=== PATIENT | female | born 1960 | race Caucasian/White ===

== ENCOUNTER → 2016-10-04 | Outpatient (CLI) | payer OTHER ==
[2016-04-04 11:00] VITALS: BP 128/89
[~2016-10-04] MED LIST: ASPI325T11 PO; ASPI81TA2 PO; ATOR40TA59 PO; BUSP5TAB PO; CLOP75TA PO; FOLI1TAB16 PO; FURO-68 PO; INSU100C4 SQ; INSU100I18 SQ; LISI2.5T PO; LORA0.5T PO; METO25TA4 PO; MULT1TAB52 PO; PANT40TA3 PO; SPIR25TA3 PO; THIA100T43 PO
--- NOTE | 2016-10-04 13:18 | CARD ---
APPROVED REPORT EXAM: Two-dimensional and M-mode echocardiogram with Doppler and color Doppler. Other Information Quality : GoodHR: 97bpm Rhythm : NSR INDICATION Cardiomyopathy 2D DIMENSIONS RVDd1.6 (2.9-3.5cm)Left Atrium(2D)4.0 (1.6-4.0cm) IVSd0.8 (0.7-1.1cm)Aortic Root(2D)2.6 (2.0-3.7cm) LVDd6.8 (3.9-5.9cm)LVOT Diameter2.0 (1.8-2.4cm) PWd0.9 (0.7-1.1cm) Aortic Valve AoV Peak Omari.125.2cm/sAoV VTI23.7cm AO Peak GR.6.3mmHgLVOT Peak Omari.98.8cm/s AO Mean GR.3mmHgAVA (VMAX)2.37cm2 Mitral Valve MV E Twmthkig78.0cm/sMV E Peak Gr.7mmHg MV DECEL [id number] A Khwaykpe576.3cm/s MV E Mean Gr.2mmHgE/A Ratio0.2 MV A [id number] Pulmonary Valve PV Peak Mftrtalu73.6cm/s Tricuspid Valve TR P. Kexgmyzz889ca/sTR Peak Gr.33mmHg Pulmonary Vein S1 Nxmsomik22.9cm/sPVa [id number] LEFT VENTRICLE The Left Ventricle is mildly dilated. There is normal left ventricular wall thickness. Left ventricle systolic function is severely impaired. The Ejection Fraction is 15-20%. There is severe global hypo kinesis of the left ventricle. Transmitral Doppler flow pattern is Grade I-abnormal relaxation patter n. No left ventricle thrombus noted on this study. RIGHT VENTRICLE The right ventricle is normal size. There is normal right ventricular wall thickness. The right ventr icular systolic function is normal. ATRIA The left atrium is mildly dilated. The right atrium size is normal. The interatrial septum is intact with no evidence for an atrial septal defect or patent foramen ovale as noted on 2-D or Doppler imagi ng. AORTIC VALVE The aortic valve is mildly thickened. Doppler and Color Flow revealed mild aortic regurgitation. Ther e is no significant aortic valvular stenosis. MITRAL VALVE The mitral valve leaflets are thickened. There is no evidence of mitral valve prolapse. There is no m itral valve stenosis. Doppler and Color Flow revealed mild mitral regurgitation. TRICUSPID VALVE Doppler and Color Flow revealed trace tricuspid regurgitation. The pulmonary artery systolic pressure is estimated at 36 mmHg. There is mild pulmonary hypertension. PULMONIC VALVE Doppler and Color Flow revealed trace pulmonic valvular regurgitation. There is no pulmonic valvular stenosis. GREAT VESSELS The aortic root is normal in size. The ascending aorta is normal in size. The IVC is normal in size a nd collapses >50% with inspiration. PERICARDIAL EFFUSION There is no evidence of significant pericardial effusion. Critical Notification Critical Value: No <Conclusion> Left ventricle systolic function is severely impaired. The Ejection Fraction is 15-20%. There is severe global hypokinesis of the left ventricle. Doppler and Color Flow revealed mild aortic regurgitation.
== END | disposition home or self-care (01) ==
LOC: ECHO 10:54
PROVIDERS: ATTEND Internal Medicine Cardiovascular Disease
DX: I42.9 Cardiomyopathy, unspecified (principal); I34.0 Nonrheumatic mitral (valve) insufficiency; I07.1 Rheumatic tricuspid insufficiency; I27.2 Other secondary pulmonary hypertension
CPT/HCPCS: 93306

== ENCOUNTER 2017-10-22 16:37 | Emergency (ER) | payer OTHER ==
[2017-10-22] MEDS ORDERED: KETOROLAC 15 MG/ML VIAL. IV (17:00)
[2017-10-22] MEDS ORDERED: ONDANSETRON PF 4 MG/2 ML VIAL. IV (17:00)
[2017-10-22] MEDS ORDERED: fentaNYL PF VIAL 100 MCG/2 ML VIAL IV (17:00)
[2017-10-22] MEDS: IBUPROFEN 600 MG TABLET. PO (17:36)
[2017-10-22] MEDS: oxyCODONE/APAP 5/325 1 TAB TABLET PO (17:37)
== END 2017-10-22 18:04 | disposition home or self-care (01) ==
LOC: ER 16:37
DX: T82.847A Pain due to cardiac prosthetic devices, implants and grafts, initial encounter (principal); R07.89 Other chest pain; I50.9 Heart failure, unspecified; E78.00 Pure hypercholesterolemia, unspecified; E11.9 Type 2 diabetes mellitus without complications; I25.10 Atherosclerotic heart disease of native coronary artery without angina pectoris; Z95.5 Presence of coronary angioplasty implant and graft; I25.2 Old myocardial infarction; Y83.8 Other surgical procedures as the cause of abnormal reaction of the patient, or of later complication, without mention of misadventure at the time of the procedure; Y82.8 Other medical devices associated with adverse incidents
CPT/HCPCS: 71046; 93005; 99284

== ENCOUNTER → 2017-10-24 | Outpatient (CLI) | payer OTHER ==
[2017-10-24 09:28] LABS: ANION GAP 8 (6-14); BLOOD UREA NITROGEN 19 mg/dL (7-20); CALCIUM 9.3 mg/dL (8.5-10.1); CARBON DIOXIDE 32 mmol/L (21-32); CHLORIDE 96 mmol/L (98-107); GFR 56.7; GLUCOSE 223 mg/dL (70-99); MAGNESIUM 1.9 mg/dL (1.8-2.4); POTASSIUM 4.5 mmol/L (3.5-5.1); SODIUM 136 mmol/L (136-145)
== END | disposition home or self-care (01) ==
LOC: LAB 08:44
DX: I42.9 Cardiomyopathy, unspecified (principal); I13.0 Hypertensive heart and chronic kidney disease with heart failure and stage 1 through stage 4 chronic kidney disease, or unspecified chronic kidney disease; E10.22 Type 1 diabetes mellitus with diabetic chronic kidney disease; I50.23 Acute on chronic systolic (congestive) heart failure; N18.3 Chronic kidney disease, stage 3 (moderate); E78.5 Hyperlipidemia, unspecified
CPT/HCPCS: 36415; 80048; 83735

== ENCOUNTER → 2018-10-08 | Outpatient (CLI) | payer OTHER ==
[2017-10-22 18:03] VITALS: BP 107/61
[~2018-10-08] MED LIST changes: +ASPI-630 PO; -ASPI81TA2 PO; +INSU100I27 SQ; +NAPR-683 PO; +OXYC1TAB15 PO; -SPIR25TA3 PO; +SPIR25TA5 PO; +TRAM50TA PO
--- NOTE | 2018-10-08 14:58 | RAD ---
Chest, PA and Lateral: Technique: PA and lateral views of the chest were obtained. History: Chest pain. Comparison: 10/22/2017. Findings: Mild cardiomegaly. Left-sided cardiac pacer AICD is identified. Mild prominent appearing bilateral interstitial lung markings likely chronic interstitial changes similar to prior exam. IMPRESSION: Mild prominent appearing bilateral interstitial lung markings likely chronic interstitial changes similar to prior exam. Electronically signed by: Arturo Martinez MD (10/08/2018 2:55 PM) [id number]
== END | disposition home or self-care (01) ==
LOC: RAD 14:26
PROVIDERS: ATTEND Internal Medicine Cardiovascular Disease
DX: I51.7 Cardiomegaly (principal); Z95.810 Presence of automatic (implantable) cardiac defibrillator
CPT/HCPCS: 71046

== ENCOUNTER 2021-05-14 14:08 | Emergency (ER) | payer MEDICAID ==
[~2021-05-14] VITALS: Ht 165.1 cm; Wt 95.3 kg
[~2021-05-14 14:08] MED LIST changes: -LISI2.5T PO; +LISI2.5T12 PO; +MULT-445 PO; -MULT1TAB52 PO; -PANT40TA3 PO; +PANT40TA77 PO
[2021-05-14] MEDS ORDERED: GENTAMICIN PER PHARMACY. MC PRN (15:00)
[2021-05-14 15:21] LABS: BASO # 0.1 x10^3/uL (0.0-0.2); BASO % 1 % (0-3); EOS # 0.2 x10^3/uL (0.0-0.7); EOS % 3 % (0-3); HEMATOCRIT 35.7 % (36.0-47.0); HEMOGLOBIN 12.6 g/dL (12.0-15.5); LYMPH # 1.4 x10^3/uL (1.0-4.8); LYMPH % 25 % (24-48); MEAN CORPUSCULAR HEMOGLOBIN 34 pg (25-35); MEAN CORPUSCULAR HGB CONC 35 g/dL (31-37); MEAN CORPUSCULAR VOLUME 96 fL (79-100); MONO # 0.6 x10^3/uL (0.0-1.1); MONO % 11 % (0-9); NEUT # 3.2 x10^3/uL (1.8-7.7); NEUT % 59 % (31-73); PLATELET COUNT 560 x10^3/uL (140-400); RED BLOOD COUNT 3.71 x10^6/uL (3.50-5.40); RED CELL DISTRIBUTION WIDTH 14.7 % (11.5-14.5); WHITE BLOOD COUNT 5.4 x10^3/uL (4.0-11.0)
--- NOTE | 2021-05-14 15:22 | RAD ---
EXAM: LEFT HAND 3 VIEWS. HISTORY: Fall, pain. COMPARISON: None. FINDINGS: There is posterior dislocation of the fourth proximal interphalangeal joint. A laceration a long the radial aspect of the third proximal interphalangeal joint has either an associated chip frac ture medially, or 2 2 mm radiographic foreign bodies within the wound. 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 IMPRESSION: 1. Dorsal dislocation of the fourth proximal interphalangeal joint. 2. Laceration along the radial aspect of the third proximal interphalangeal joint with associated rad ial chip fractures, or 2 mm radiopaque foreign bodies. Electronically signed by: Tayler Carballo MD (05/14/2021 3:19 PM) [facility]
[2021-05-14 15:30] LABS: PROTHROMBIN TIME PATIENT 12.7 SEC (11.7-14.0)
[2021-05-14] MEDS ORDERED: MORPHINE SULFATE 4 MG/ML INJ. IVP ONE ×2 (15:30)
[2021-05-14] MEDS ORDERED: NEOMY/BACITR/POLYMYXIN OINT PACKET. TP ONE (15:30)
[2021-05-14] MEDS ORDERED: IV NORMAL SALINE 1000ML BAG 1,000 ML IV ONE (15:30)
[2021-05-14] MEDS ORDERED: LIDOCAINE 1% Multi-Dose 20 ML VIAL. INJ ONE (15:30)
[2021-05-14] MEDS ORDERED: DIPH,PERTUSS(ACELL),TET VAC/PF 0.5 ML SYRINGE. VAX IM ONE (15:30)
--- NOTE | 2021-05-14 15:42 | RAD ---
Exam Date: 05/14/2021 3:[address] HEAD AND C-SPINE WO, CT MAXILLOFACIAL WITHOUT CONTRAST Indication: Reason: fall, head injury w/loc, on ac / Spl. Instructions: / History: . One or more of the following dose reduction techniques were utilized: *Automated exposure control (AEC) *Adjustment of mA and/or kV according to patient size *Use of iterative reconstruction technique *CT scan done according to ALARA, or ALARA/IMAGE GENTLY EXAMINATION: CT OF THE HEAD WITHOUT CONTRAST INDICATION: Trauma, head injury, headache; TECHNIQUE: Noncontrast helical axial CT images of the head were obtained. FINDINGS: The ventricles and sulci are prominent consistent with cerebral volume loss. Patchy ill-defined low attenuation areas in the subcortical and periventricular white matter bilaterally are consistent with microvascular disease. There is no evidence of acute intracranial hemorrhage, extra-axial collecti on, mass effect, midline shift, or acute territorial infarct. No lesion of the skull base or the calv arium is seen. IMPRESSION: No evidence for acute intracranial abnormality. Volume loss and microvascular disease. EXAMINATION: MAXILLOFACIAL CT WITHOUT CONTRAST CLINICAL INDICATION: Maxillofacial pain after trauma TECHNIQUE: Helical axial CT images through the maxillofacial bones were obtained without contrast. So urce data were reconstructed into the sagittal and coronal planes. FINDINGS: There is no evidence of acute facial bone fracture. The mandible appears intact. Orbits appear intact . The nasal septum is deviated to the left. There is a small retention cyst in the left maxillary sinus. The visualized paranasal sinuses and ma stoid air cells otherwise appear clear. IMPRESSION: No evidence of acute fracture of the maxillofacial bones. EXAMINATION: CT OF THE CERVICAL SPINE WITHOUT CONTRAST Clinical Indication: Cervical spine pain after trauma Technique: Thin cut helical axial CT images through the cervical spine were obtained without contrast on a multi-detector CT scanner. Source data was then reconstructed into sagittal and coronal planes. Findings: Alignment is maintained without spondylolisthesis. Vertebral body heights are maintained without acute fracture. Moderate multilevel degenerative change s are noted. No significant prevertebral soft tissue swelling is demonstrated. No severe osseous cent ral canal stenosis is seen. Impression: No evidence of acute cervical spine fracture or subluxation. Electronically signed by: Vamshi Cosme MD (05/14/2021 3:40 PM) [id number]
--- NOTE | 2021-05-14 15:59 | RAD ---
EXAM: Left fingers, 4 views. HISTORY: Trauma. COMPARISON: None. FINDINGS: 4 views of the left hand are obtained. There is dislocation of the fourth proximal interpha langeal joint. There are small ossicles adjacent to the third proximal interphalangeal joint, likely due to fracture fragments of uncertain chronicity. No convincing donor site is seen on the submitted images. There is no foreign body. IMPRESSION: 1. Fourth proximal interphalangeal joint dislocation. 2. Small ossicles adjacent to the third proximal interphalangeal joint, suggesting avulsion fracture fragments of uncertain chronicity. No donor site is seen on the submitted images. These do not appear to be foreign bodies. Correlate for pain in this location. Electronically signed by: Luci Sow MD (05/14/2021 3:57 PM) [id number]
[2021-05-14] MEDS ORDERED: DEXTROSE 5% IV ONE (16:00)
[2021-05-14] MEDS ORDERED: GENTAMICIN SULFATE IV ONE (16:00)
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
[2021-05-14] MEDS ORDERED: fentaNYL PF VIAL 100 MCG/2 ML VIAL ONE (16:26)
[2021-05-14] MEDS ORDERED: fentaNYL PF VIAL 100 MCG/2 ML VIAL IVP ONE (16:30)
[2021-05-14 16:48] LABS: CALCIUM 7.8 mg/dL (8.5-10.1); CREATININE 0.6 mg/dL (0.6-1.0); GFR 101.3; POTASSIUM 4.3 mmol/L (3.5-5.1)
[2021-05-14 16:54] LABS: ALBUMIN 3.1 g/dL (3.4-5.0); ALBUMIN/GLOBULIN RATIO 0.7 (1.0-1.7); TOTAL BILIRUBIN 0.2 mg/dL (0.2-1.0); TOTAL PROTEIN 7.4 g/dL (6.4-8.2)
--- NOTE | 2021-05-14 17:43 | RAD ---
3 views left hand HISTORY: Reduction of fourth digit AP lateral oblique views There is minimal degenerative changes the distal interphalangeal joints. The visualized osseous struc tures appear grossly intact. There is no lytic destructive changes. IMPRESSION: Negative examination. Status post successful reduction of proximal interphalangeal joint of the fourt h finger. Electronically signed by: Mario Jett III, MD (05/14/2021 5:40 PM) [facility]
[2021-05-14] MEDS ORDERED: HYDROmorphone 2 MG/ML VIAL ONE (19:25)
[2021-05-14] MEDS ORDERED: HYDROmorphone 2 MG/ML VIAL IVP ONE (19:30)
[2021-05-14] MEDS ORDERED: IBUP-985 PO (19:34)
[2021-05-14] MEDS ORDERED: CEPH500C PO (19:34)
[2021-05-14] MEDS ORDERED: HYDR-2761 PO (19:34)
[2021-05-14] MEDS ORDERED: SULF1TAB24 PO (19:34)
[2021-05-14 20:49] VITALS: BP 179/89
--- NOTE | 2021-05-15 16:08 | NUR ---
IP: Attempted to contact pt concerning covid test. Phone number provided is not in service.
== END 2021-05-14 22:51 | disposition home or self-care (01) ==
LOC: ER 14:08
DX: S63.255A Unspecified dislocation of left ring finger, initial encounter (principal); Z20.822 Contact with and (suspected) exposure to COVID-19; S61.213A Laceration without foreign body of left middle finger without damage to nail, initial encounter; S00.93XA Contusion of unspecified part of head, initial encounter; E11.9 Type 2 diabetes mellitus without complications; E78.00 Pure hypercholesterolemia, unspecified; I25.10 Atherosclerotic heart disease of native coronary artery without angina pectoris; I25.2 Old myocardial infarction; Z86.79 Personal history of other diseases of the circulatory system; Z95.0 Presence of cardiac pacemaker; Z95.5 Presence of coronary angioplasty implant and graft; Z88.6 Allergy status to analgesic agent; W18.39XA Other fall on same level, initial encounter; Y93.89 Activity, other specified; Y92.89 Other specified places as the place of occurrence of the external cause; Y99.8 Other external cause status
CPT/HCPCS: 12001; 26770; 36415; 70450; 70486; 72125; 73130; 73140; 80053; 85025; 85610; 85730; 87426; 90471; 90715; 96365; 96367; 96375; 96376; 99285; G0480; J0690; J1170; J1580; J2270; J3010; J3490; J7030; J7060; U0003; U0005